=== PATIENT | male | born 1945 | race Two or more races ===

== ENCOUNTER 2021-11-18 10:58 | Outpatient (RCR) | payer MEDICARE ==
[~2021-11-18 10:58] MED LIST: BYSTOLIC10 MG PO
== END 2021-11-24 ==
LOC: PT 10:58
DX: R26.2 Difficulty in walking, not elsewhere classified (principal)

== ENCOUNTER 2021-12-23 15:56 | Outpatient (RCR) | payer MEDICARE | END 2021-12-24 | LOC: PT 15:56 | DX: R26.2 Difficulty in walking, not elsewhere classified (principal) | CPT/HCPCS: 97022; 97110 ×15; 97139; 97165; G0283 ==

== ENCOUNTER 2022-01-20 10:00 | Outpatient (RCR) | payer MEDICARE | END 2022-01-24 | LOC: OT 10:00 | DX: M25.531 Pain in right wrist (principal); R25.1 Tremor, unspecified; R26.2 Difficulty in walking, not elsewhere classified | CPT/HCPCS: 97139 ==

== ENCOUNTER 2022-02-02 11:00 | Outpatient (RCR) | payer MEDICARE | END 2022-02-24 | LOC: PT 11:00 | DX: R29.898 Other symptoms and signs involving the musculoskeletal system (principal); R26.2 Difficulty in walking, not elsewhere classified; M62.81 Muscle weakness (generalized) ==